=== PATIENT | male | born 1995 | race Caucasian/White ===

== ENCOUNTER 2016-10-24 08:36 | Day surgery (SDC) | payer OTHER ==
[2016-10-24] MEDS ORDERED: LIDOCAINE 1% 2 ML INJ ONE (08:53)
[2016-10-24] MEDS ORDERED: LR 1,000 ML IV ONE (09:07)
[2016-10-24] MEDS ORDERED: LIDOCAINE 1% 5 ML SDV ID PRN (09:07)
[2016-10-24] MEDS ORDERED: fentaNYL 100 MCG/2 ML INJ ONE (09:49)
[2016-10-24] MEDS ORDERED: PROPOFOL 200 MG/20 ML VIAL ONE (09:49)
[2016-10-24] MEDS ORDERED: METOCLOPRAMIDE 10 MG/2 ML VIAL ONE (09:51)
[2016-10-24] MEDS ORDERED: ONDANSETRON 4 MG/2 ML VIAL ONE (09:52)
[2016-10-24] MEDS ORDERED: MIDAZOLAM 2 MG/2 ML VIAL ONE (09:54)
--- NOTE | 2016-10-24 10:42 | GPN ---
[f rep st] PROCEDURE NOTE PREPROCEDURE DIAGNOSIS: Nausea, vomiting, bloating, diarrhea, heartburn POSTPROCEDURE DIAGNOSIS: Mild to moderate diffuse gastritis. PROCEDURE: EGD with biopsies. MEDICATIONS: Monitored anesthesia care. INDICATIONS: The patient is a 21-year-old gentleman with a history of diarrhea, predominant irritab le bowel syndrome, and heartburn, who presented to our office with nausea, vomiting, epigastric [place] pain, and bloating. He was referred for an upper endoscopy for further evaluation. The risks and the benefits of the procedure were discussed with the patient and consent obtained. Risks incl ude, but not limited to, bleeding, perforation, and risks associated with sedation. The patient is ASA Class 1. DESCRIPTION OF PROCEDURE: The end-viewing endoscope was inserted into the esophagus, into the stoma ch and the second portion of the duodenal. The esophagus is normal. The GE junction is located at 45 cm from the incisors. The stomach shows mild to moderate diffuse gastritis, consistent with eryt ryanne, erosions, and adherent blood. Biopsies were taken using cold biopsy forceps to evaluate for H elicobacter pylori. The duodenum and second portion were normal. Biopsies were taken using cold bi opsy forceps to evaluate for celiac disease. IMPRESSION: Diffuse gastritis, otherwise normal upper endoscopy. RECOMMENDATION: 1. Discharge home with escort. 2. Advance diet as tolerated. 3. Continue current medications. Consider a trial of pantoprazole 40 mg orally daily. Omeprazole has been ineffective in the past. This trial should be for 2 months. 4. Follow up on the final pathology results. Results available within 10 days. 5. Avoid nonsteroidal antiinflammatory medications, including ibuprofen, etc. 6. Follow up in our GI clinic as previously scheduled. Thank you for allowing me to participate in the care of your patient. Please do not hesitate to bryce morgan with questions. /[id number]/MODL
== END 2016-10-24 11:45 | disposition home or self-care (01) ==
LOC: FSGY 08:36
PROVIDERS: ATTEND Internal Medicine Gastroenterology
PROC: 0DB68ZX Excision of Stomach, Via Natural or Artificial Opening Endoscopic, Diagnostic (ICD-10-PCS; principal; 2016-10-24 10:00)
DX: K29.50 Unspecified chronic gastritis without bleeding (principal); K21.9 Gastro-esophageal reflux disease without esophagitis; K58.9 Irritable bowel syndrome, unspecified; B96.81 Helicobacter pylori [H. pylori] as the cause of diseases classified elsewhere
CPT/HCPCS: J2250; J2405; J2704; J2765; J3010